=== PATIENT | male | born 1975 | race Hispanic/Latino ===

== ENCOUNTER 2023-09-04 18:37 | Emergency (ER) | payer OTHER ==
[~2023-09-04] VITALS: Ht 167.6 cm; Wt 97.5 kg
[2023-09-04] MEDS ORDERED: DIPH-1242 PO (21:00)
[2023-09-04] MEDS ORDERED: DIPHENHYDRAMINE HCL 25 MG CAPSULE PO ONE ×2 (21:00)
[2023-09-04 21:08] VITALS: BP 121/68; PULSE 70; RESP 18; O2SAT 98
== END 2023-09-04 21:16 | disposition home or self-care (01) ==
LOC: EDH 18:37
DX: T78.3XXA Angioneurotic edema, initial encounter (principal); X58.XXXA Exposure to other specified factors, initial encounter
CPT/HCPCS: 99282; Q0163